=== PATIENT | male | born 1995 | race Caucasian/White ===

== ENCOUNTER 2024-10-15 16:30 | Outpatient (CLI) | payer BC, SELFPAY | END 2024-10-15 16:31 | disposition home or self-care (01) | PROVIDERS: PCP Internal Medicine; Visit Provider Internal Medicine | DX: R10.9 Unspecified abdominal pain (principal) | CPT/HCPCS: 80053; 84443 ==

== ENCOUNTER 2024-10-22 07:05 | Outpatient (CLI) | payer BC, SELFPAY | END 2024-10-22 07:06 | disposition home or self-care (01) | PROVIDERS: PCP Internal Medicine; Visit Provider Internal Medicine | DX: R10.11 Right upper quadrant pain (principal) | CPT/HCPCS: 76705 ==

== ENCOUNTER 2024-11-05 09:51 | Outpatient (CLI) | payer BC, SELFPAY ==
--- NOTE | 2024-11-05 13:15 | CRLHL7_ITS ---
For Patients: As a result of the Century Cures Act, medical imaging exams and procedure reports are released immediately into your electronic medical record. You may view this report before your referring provider. If you have questions, please contact your health care provider. INDICATION: Abdominal pain COMPARISON: Ultrasound 10/22/2024 MOST RECENT SERUM BILIRUBIN: Not provided RADIOPHARMACEUTICAL: 7.2 mCi [id number] was administered intravenously. TECHNIQUE: The patient was NPO according to the protocol. 5 minute summed anterior projection planar images were obtained over the abdomen for 60 minutes. A single right lateral image was obtained over 5 minutes. For the calculation of a gallbladder ejection fraction, an intravenous dose of 1.76 microgram of Kinevac (CCK/cholecystokinin) was administered to the patient after confirming visualization of radiotracer in the gallbladder and small bowel. A small meal of Ensure was administered to evaluate the gallbladder ejection fraction. One minute summed anterior projection images were obtained over the abdomen for 30 minutes and postprocessing software was used to quantitate the ejection fraction. FINDINGS: There is prompt clearance of the radiotracer from the soft tissues with clear visualization of the hepatic parenchyma at 1 minute. There is normal clearance of the radiotracer from the liver. The central bile ducts are visualized by 5 minutes. The gallbladder is visualized by 5 minutes. Radiotracer is seen within the small bowel by 10 minutes. The calculated gallbladder ejection fraction is 75%. Normal is more than 35%. IMPRESSION: Normal HIDA scan. Normal gallbladder ejection fraction. Dictated by Yas Douglas MD @ 11/06/2024 8:45:40 AM (Electronically Signed)
== END 2024-11-05 09:52 | disposition home or self-care (01) ==
LOC: NM 09:52
PROVIDERS: PCP Internal Medicine; Visit Provider Internal Medicine
DX: R10.9 Unspecified abdominal pain (principal)
CPT/HCPCS: 78227; A9537; J2805